=== PATIENT | male | born 1990 | race Caucasian/White ===

== ENCOUNTER 2016-08-20 17:42 | Inpatient (IN) | payer MEDICAID ==
[~2016-08-20] VITALS: Ht 172.7 cm; Wt 67.9 kg
[~2016-08-20 17:42] MED LIST: KETAMINE HCL 500 MG/10 ML VIAL ONE; MIDAZOLAM HCL 5 MG/5 ML VIAL ONE
[2016-08-20] MEDS ORDERED: ALU/MAG/SIM 30 ML UDC PO PRN (17:45)
[2016-08-20] MEDS ORDERED: PHARMACY TO DOSE VANCOMYCIN IV SCH (17:45)
[2016-08-20] MEDS ORDERED: SODIUM CHLORIDE 0.9% 1,000 ML IV SCH (17:45)
[2016-08-20] MEDS ORDERED: PHARMACY TO DOSE CEFEPIME IV SCH (17:45)
[2016-08-20] MEDS ORDERED: SALINE FLUSH 10 ML FLUSH PRN (17:45)
[2016-08-20] MEDS: ENOXAPARIN 40 MG/0.4 ML SYR SUBQ SCH (17:45)
[2016-08-20] MEDS ORDERED: DUONEB INH SCH (19:00)
[2016-08-20 21:29] VITALS: BP_SYST 88; RESP 18; TEMP 99.8
[2016-08-20] MEDS ORDERED: NEB-ALBUTEROL 2.5 MG/3 ML INH PRN (22:05)
[2016-08-20] MEDS ORDERED: PHARMACY TO DOSE ZOSYN IV SCH (22:05)
[2016-08-20] MEDS ORDERED: **NOTE TO NURSE XX SCH (22:17)
[2016-08-20] MEDS: DIVALPROEX SOD 125 MG CAP PO SCH (22:25)
[2016-08-20] MEDS: FAMOTIDINE 20 MG TAB PO SCH (22:27)
[2016-08-20 22:34] VITALS: BMI 22.5
[2016-08-20 22:48] VITALS: Ht 172.7 cm; Wt 67.9 kg
[2016-08-20] MEDS ORDERED: VANCOMYCIN 1,250 MG in SODIUM CHLORIDE 0.9% 250 ML IV ONE (22:55)
[2016-08-21] VITALS (30 sets, daily range): BP systolic 87–124; RESP 16–50; TEMP 98.5–101.4
[2016-08-21] MEDS: ACETAMINOPHEN 325 MG TAB PO PRN ×2 (00:13→07:32)
[2016-08-21] MEDS ORDERED: DIPHENHYDRAMINE 25 MG/10 ML UDC PO PRN (01:55)
[2016-08-21] MEDS: PIPERACIL/TAZO 3.375GM/50ML 50 ML IV SCH ×4 (02:13→17:42)
[2016-08-21] MEDS: SALINE FLUSH 10 ML FLUSH SCH ×3 (02:13→20:57)
[2016-08-21] MEDS: SODIUM CHLORIDE 0.9% FLUSH BAG 500 ML IV SCH (06:17)
[2016-08-21] MEDS ORDERED: SODIUM CHLORIDE 0.9% 1,000 ML IV ONE ×3 (06:55→11:10)
[2016-08-21] MEDS ORDERED: SODIUM CHLORIDE 0.9% 1,000 ML IV SCH ×2 (08:45→08:55)
[2016-08-21] MEDS ORDERED: LORAZEPAM 2 MG/ML VIAL IV PRN (08:55)
[2016-08-21] MEDS: CITALOPRAM 10 MG/5 ML PO SCH ×3 (09:00→20:53)
[2016-08-21] MEDS: ENOXAPARIN 40 MG/0.4 ML SYR SUBQ SCH (09:00)
[2016-08-21] MEDS: FAMOTIDINE 20 MG TAB PO SCH ×2 (09:44→20:56)
[2016-08-21] MEDS: DIVALPROEX SOD 125 MG CAP PO SCH ×2 (09:44→20:56)
[2016-08-21] MEDS: VANCOMYCIN 1,000 MG in SODIUM CHLORIDE 0.9% 250 ML IV SCH ×2 (10:37→17:43)
[2016-08-21] MEDS ORDERED: KETAMINE INJ 50 MG/ML VIAL IV ONE (13:15)
[2016-08-21] MEDS ORDERED: MISSING DOSE XX ONE ×5 (15:15→20:10)
[2016-08-21] MEDS ORDERED: MORPHINE 4 MG/ML SYR ONE (16:17)
[2016-08-21] MEDS: DEXMEDETOMIDINE 200 MCG in SODIUM CHLORIDE 0.9% 48 ML IV SCH ×2 (16:43→21:07)
[2016-08-21] MEDS: NEB-DORNASE ALFA 5 MG, WATER, STERILE 25 ML in ADMIX SYRINGE 1 EACH I-PLEURAL SCH ×4 (17:00→17:17)
[2016-08-21] MEDS: ALTEPLASE RECOMBINANT 10 MG, SODIUM CHLORIDE 0.9% PF 20 ML in ADMIX SYRINGE 1 EACH I-PLEURAL SCH ×4 (17:00→17:17)
[2016-08-21] MEDS: LACT RINGERS 1,000 ML IV SCH (18:21)
[2016-08-21] MEDS: PANTOPRAZOLE 40 MG VIAL IV SCH (20:56)
[2016-08-22] VITALS (42 sets, daily range): BP systolic 74–145; RESP 14–45; TEMP 98.1–101
[2016-08-22] MEDS: VANCOMYCIN 1,000 MG in SODIUM CHLORIDE 0.9% 250 ML IV SCH (00:27)
[2016-08-22] MEDS: PIPERACIL/TAZO 3.375GM/50ML 50 ML IV SCH ×5 (00:27→23:11)
[2016-08-22] MEDS: LACT RINGERS 1,000 ML IV SCH ×3 (01:05→22:05)
[2016-08-22] MEDS: DEXMEDETOMIDINE 200 MCG in SODIUM CHLORIDE 0.9% 48 ML IV SCH ×5 (01:28→19:56)
[2016-08-22] MEDS: ACETAMINOPHEN 325 MG TAB PO PRN ×2 (01:29→17:59)
[2016-08-22] MEDS: SODIUM CHLORIDE 0.9% FLUSH BAG 500 ML IV SCH (05:25)
[2016-08-22] MEDS ORDERED: VANCOMYCIN 1,500 MG in SODIUM CHLORIDE 0.9% 250 ML IV SCH (08:40)
[2016-08-22] MEDS: SALINE FLUSH 10 ML FLUSH SCH ×2 (09:05→20:00)
[2016-08-22] MEDS: ALTEPLASE RECOMBINANT 10 MG, SODIUM CHLORIDE 0.9% PF 20 ML in ADMIX SYRINGE 1 EACH I-PLEURAL SCH ×4 (09:16→17:11)
[2016-08-22] MEDS: NEB-DORNASE ALFA 5 MG, WATER, STERILE 25 ML in ADMIX SYRINGE 1 EACH I-PLEURAL SCH ×4 (09:17→17:11)
[2016-08-22] MEDS: PANTOPRAZOLE 40 MG VIAL IV SCH ×2 (09:18→21:48)
[2016-08-22] MEDS: DIVALPROEX SOD 125 MG CAP PO SCH ×2 (09:18→21:49)
[2016-08-22] MEDS: FAMOTIDINE 20 MG TAB PO SCH (09:19)
[2016-08-22] MEDS: ENOXAPARIN 40 MG/0.4 ML SYR SUBQ SCH (09:21)
[2016-08-22] MEDS ORDERED: MISSING DOSE XX ONE ×4 (09:35→21:45)
[2016-08-22] MEDS: VANCOMYCIN 1,250 MG in SODIUM CHLORIDE 0.9% 250 ML IV SCH ×3 (09:35→23:09)
[2016-08-22] MEDS ORDERED: POLYETHYLENE GLYCOL 17 GM PACKET PO PRN (11:05)
[2016-08-22] MEDS: CITALOPRAM 10 MG/5 ML PO SCH (21:48)
[2016-08-23] VITALS (36 sets, daily range): BP systolic 32–119; RESP 21–45; TEMP 96.7–98.4
[2016-08-23] MEDS: DEXMEDETOMIDINE 200 MCG in SODIUM CHLORIDE 0.9% 48 ML IV SCH ×5 (00:48→19:32)
[2016-08-23] MEDS ORDERED: MISSING DOSE XX ONE ×5 (04:10→19:35)
[2016-08-23] MEDS: LACT RINGERS 1,000 ML IV SCH (05:23)
[2016-08-23] MEDS: PIPERACIL/TAZO 3.375GM/50ML 50 ML IV SCH ×3 (05:37→18:58)
[2016-08-23] MEDS: SODIUM CHLORIDE 0.9% FLUSH BAG 500 ML IV SCH (05:37)
[2016-08-23] MEDS: VANCOMYCIN 1,250 MG in SODIUM CHLORIDE 0.9% 250 ML IV SCH ×2 (05:38→15:29)
[2016-08-23] MEDS ORDERED: LACT RINGERS 1,000 ML IV SCH (06:05)
[2016-08-23] MEDS: SALINE FLUSH 10 ML FLUSH SCH ×2 (09:36→22:05)
[2016-08-23] MEDS: ALTEPLASE RECOMBINANT 10 MG, SODIUM CHLORIDE 0.9% PF 20 ML in ADMIX SYRINGE 1 EACH I-PLEURAL SCH ×4 (09:37→17:38)
[2016-08-23] MEDS: NEB-DORNASE ALFA 5 MG, WATER, STERILE 25 ML in ADMIX SYRINGE 1 EACH I-PLEURAL SCH ×4 (09:38→17:38)
[2016-08-23] MEDS: DIVALPROEX SOD 125 MG CAP PO SCH ×2 (09:38→22:05)
[2016-08-23] MEDS: ENOXAPARIN 40 MG/0.4 ML SYR SUBQ SCH (09:39)
[2016-08-23] MEDS: POLYETHYLENE GLYCOL 17 GM PACKET PO SCH (09:40)
[2016-08-23] MEDS: DOCUSATE SOD 100 MG CAP PO SCH ×2 (12:21→22:05)
[2016-08-23] MEDS: PANTOPRAZOLE 40 MG TAB PO SCH (17:38)
[2016-08-23] MEDS: ACETAMINOPHEN 325 MG TAB PO PRN (17:45)
[2016-08-23] MEDS: MORPHINE 4 MG/ML SYR IV PRN ×2 (18:10→22:11)
[2016-08-23] MEDS: VANCOMYCIN 1,500 MG in SODIUM CHLORIDE 0.9% 250 ML IV SCH (22:06)
[2016-08-23] MEDS: CITALOPRAM 10 MG/5 ML PO SCH (22:07)
[2016-08-24] VITALS (39 sets, daily range): BP systolic 90–124; RESP 21–40; TEMP 97.2–98.7
[2016-08-24] MEDS: PIPERACIL/TAZO 3.375GM/50ML 50 ML IV SCH ×2 (00:09→06:06)
[2016-08-24] MEDS: DEXMEDETOMIDINE 200 MCG in SODIUM CHLORIDE 0.9% 48 ML IV SCH ×5 (00:13→19:28)
[2016-08-24] MEDS ORDERED: MISSING DOSE XX ONE ×5 (02:55→22:50)
[2016-08-24] MEDS: SODIUM CHLORIDE 0.9% FLUSH BAG 500 ML IV SCH (06:05)
[2016-08-24] MEDS: PANTOPRAZOLE 40 MG TAB PO SCH ×3 (06:06→18:04)
[2016-08-24] MEDS: VANCOMYCIN 1,500 MG in SODIUM CHLORIDE 0.9% 250 ML IV SCH ×3 (06:06→22:43)
[2016-08-24] MEDS: PANTOPRAZOLE 40 MG VIAL IV SCH (07:26)
[2016-08-24] MEDS ORDERED: ALTEPLASE RECOMBINANT 10 MG, SODIUM CHLORIDE 0.9% PF 20 ML in ADMIX SYRINGE 1 EACH I-PLEURAL ONE ×2 (08:35)
[2016-08-24] MEDS: DIVALPROEX SOD 125 MG CAP PO SCH ×2 (08:58→21:04)
[2016-08-24] MEDS: SALINE FLUSH 10 ML FLUSH SCH ×2 (08:58→20:00)
[2016-08-24] MEDS: POLYETHYLENE GLYCOL 17 GM PACKET PO SCH (09:00)
[2016-08-24] MEDS ORDERED: NEB-DORNASE ALFA 5 MG, WATER, STERILE 25 ML in ADMIX SYRINGE 1 EACH I-PLEURAL ONE ×2 (09:10)
[2016-08-24] MEDS: DOCUSATE SOD 100 MG CAP PO SCH ×2 (09:20→21:00)
[2016-08-24] MEDS: ENOXAPARIN 40 MG/0.4 ML SYR SUBQ SCH (09:21)
[2016-08-24] MEDS ORDERED: LORAZEPAM 2 MG/ML VIAL IV ONE (16:45)
[2016-08-24] MEDS: CITALOPRAM 10 MG/5 ML PO SCH (21:03)
[2016-08-25] VITALS (24 sets, daily range): BP systolic 92–128; RESP 17–38; TEMP 99.1–99.7
[2016-08-25] MEDS ORDERED: MISSING DOSE XX ONE ×6 (03:55→20:30)
[2016-08-25] MEDS: DEXMEDETOMIDINE 200 MCG in SODIUM CHLORIDE 0.9% 48 ML IV SCH ×5 (04:05→20:53)
[2016-08-25] MEDS: SODIUM CHLORIDE 0.9% FLUSH BAG 500 ML IV SCH (06:00)
[2016-08-25] MEDS ORDERED: PANTOPRAZOLE 40 MG TAB PO SCH (07:00)
[2016-08-25] MEDS: SALINE FLUSH 10 ML FLUSH SCH ×2 (08:46→20:00)
[2016-08-25] MEDS: VANCOMYCIN 1,500 MG in SODIUM CHLORIDE 0.9% 250 ML IV SCH (08:46)
[2016-08-25] MEDS: PANTOPRAZOLE 40 MG TAB PO SCH ×2 (08:46→17:49)
[2016-08-25] MEDS: DIVALPROEX SOD 125 MG CAP PO SCH ×2 (08:47→20:03)
[2016-08-25] MEDS: DOCUSATE SOD 100 MG CAP PO SCH ×2 (08:47→20:03)
[2016-08-25] MEDS: POLYETHYLENE GLYCOL 17 GM PACKET PO SCH (08:47)
[2016-08-25] MEDS: ENOXAPARIN 40 MG/0.4 ML SYR SUBQ SCH (08:48)
[2016-08-25] MEDS: [UNRECOGNIZED DRUG - OTHER] PO SCH ×2 (14:35→20:03)
[2016-08-25] MEDS: SULBACTAM IV SCH (17:50)
[2016-08-25] MEDS: SODIUM CHLORIDE 0.9% IV SCH (17:50)
[2016-08-25] MEDS: CITALOPRAM 10 MG/5 ML PO SCH (20:04)
[2016-08-26] VITALS (21 sets, daily range): BP systolic 92–150; RESP 17–29; TEMP 97.6–100.4
[2016-08-26] MEDS: SODIUM CHLORIDE 0.9% IV SCH ×4 (00:28→17:17)
[2016-08-26] MEDS: SULBACTAM IV SCH ×4 (00:28→17:17)
[2016-08-26] MEDS ORDERED: MISSING DOSE XX ONE ×4 (00:40→21:05)
[2016-08-26] MEDS: DEXMEDETOMIDINE 200 MCG in SODIUM CHLORIDE 0.9% 48 ML IV SCH ×2 (00:47→04:12)
[2016-08-26] MEDS: ACETAMINOPHEN 325 MG TAB PO PRN (03:24)
[2016-08-26] MEDS: SODIUM CHLORIDE 0.9% FLUSH BAG 500 ML IV SCH (04:14)
[2016-08-26] MEDS: PANTOPRAZOLE 40 MG TAB PO SCH ×2 (06:12→16:56)
[2016-08-26] MEDS ORDERED: LORAZEPAM 0.5 MG TAB PO PRN (08:45)
[2016-08-26] MEDS: DIVALPROEX SOD 125 MG CAP PO SCH ×2 (08:52→20:53)
[2016-08-26] MEDS: SALINE FLUSH 10 ML FLUSH SCH (08:53)
[2016-08-26] MEDS: [UNRECOGNIZED DRUG - OTHER] PO SCH ×2 (08:53→20:55)
[2016-08-26] MEDS: DOCUSATE SOD 100 MG CAP PO SCH ×2 (08:53→20:53)
[2016-08-26] MEDS: POLYETHYLENE GLYCOL 17 GM PACKET PO SCH (08:53)
[2016-08-26] MEDS: ENOXAPARIN 40 MG/0.4 ML SYR SUBQ SCH (08:54)
[2016-08-26] MEDS: CITALOPRAM 10 MG/5 ML PO SCH (20:52)
[2016-08-26] MEDS ORDERED: ACETAMINOPHEN 325 MG TAB ONE (21:16)
[2016-08-27 01:00] VITALS: BP_SYST 106; RESP 18; TEMP 98
[2016-08-27] MEDS: SODIUM CHLORIDE 0.9% IV SCH ×3 (01:30→12:00)
[2016-08-27] MEDS: SULBACTAM IV SCH ×3 (01:30→12:00)
[2016-08-27 05:17] VITALS: BP_SYST 114; RESP 18; TEMP 97.7
[2016-08-27] MEDS ORDERED: MISSING DOSE XX ONE ×3 (06:20→20:45)
[2016-08-27 07:39] VITALS: BP_SYST 105; RESP 16; TEMP 97.3
[2016-08-27] MEDS: PANTOPRAZOLE 40 MG TAB PO SCH ×2 (07:47→15:47)
[2016-08-27] MEDS: SALINE FLUSH 10 ML FLUSH SCH ×3 (07:48→20:00)
[2016-08-27] MEDS: SODIUM CHLORIDE 0.9% FLUSH BAG 500 ML IV SCH (07:48)
[2016-08-27] MEDS: DOCUSATE SOD 100 MG CAP PO SCH ×2 (09:23→20:48)
[2016-08-27] MEDS: DIVALPROEX SOD 125 MG CAP PO SCH ×2 (09:23→20:47)
[2016-08-27] MEDS: POLYETHYLENE GLYCOL 17 GM PACKET PO SCH (09:23)
[2016-08-27] MEDS: ENOXAPARIN 40 MG/0.4 ML SYR SUBQ SCH (09:24)
[2016-08-27] MEDS: [UNRECOGNIZED DRUG - OTHER] PO SCH ×2 (09:24→20:47)
[2016-08-27 11:07] VITALS: BP_SYST 128; RESP 16; TEMP 97.2
[2016-08-27] MEDS: AMOXICILLIN/CLAV 875 MG TAB PO SCH ×2 (15:47→20:47)
[2016-08-27 20:27] VITALS: BP_SYST 109; RESP 18; TEMP 99.1
[2016-08-27] MEDS: CITALOPRAM 10 MG/5 ML PO SCH (20:48)
[2016-08-28 00:36] VITALS: BP_SYST 138; RESP 18; TEMP 97.8
[2016-08-28 03:44] VITALS: BP_SYST 132; RESP 18; TEMP 97.8
[2016-08-28] MEDS: SODIUM CHLORIDE 0.9% FLUSH BAG 500 ML IV SCH (06:00)
[2016-08-28] MEDS: PANTOPRAZOLE 40 MG TAB PO SCH (06:30)
[2016-08-28 07:45] VITALS: BP_SYST 112; RESP 18; TEMP 98.6
[2016-08-28] MEDS: SALINE FLUSH 10 ML FLUSH SCH (08:00)
[2016-08-28] MEDS: ENOXAPARIN 40 MG/0.4 ML SYR SUBQ SCH ×2 (09:00→09:28)
[2016-08-28] MEDS: DOCUSATE SOD 100 MG CAP PO SCH (09:00)
[2016-08-28] MEDS: AMOXICILLIN/CLAV 875 MG TAB PO SCH (09:25)
[2016-08-28] MEDS: DIVALPROEX SOD 125 MG CAP PO SCH (09:26)
[2016-08-28] MEDS: [UNRECOGNIZED DRUG - OTHER] PO SCH (09:26)
[2016-08-28] MEDS: POLYETHYLENE GLYCOL 17 GM PACKET PO SCH (09:28)
[2016-08-28 11:15] VITALS: BP_SYST 118; RESP 18; TEMP 97.4
[2016-08-28 12:56] VITALS: BP_SYST 118; RESP 18; TEMP 97.4
== END 2016-08-28 13:50 | disposition home or self-care (01) | DRG 871 ==
LOC: ENRESERVTM → ENRESERVDT → 4NT 20:58 → ENPENDDIS 20:58 → ICU 08-21 14:38 → 4NT 08-27 01:05
PROVIDERS: ADMIT Internal Medicine; ATTEND Internal Medicine
PROC: 0W9B30Z Drainage of Left Pleural Cavity with Drainage Device, Percutaneous Approach (ICD-10-PCS; principal; 2016-08-21)
PROC: 3E0L3GC Introduction of Other Therapeutic Substance into Pleural Cavity, Percutaneous Approach (ICD-10-PCS; 2016-08-21)
DX: A41.9 Sepsis, unspecified organism (principal); J96.01 Acute respiratory failure with hypoxia; J86.9 Pyothorax without fistula; R65.21 Severe sepsis with septic shock; E87.2 Acidosis; J18.9 Pneumonia, unspecified organism; E46 Unspecified protein-calorie malnutrition; F84.0 Autistic disorder; E87.1 Hypo-osmolality and hyponatremia; B95.4 Other streptococcus as the cause of diseases classified elsewhere; K21.9 Gastro-esophageal reflux disease without esophagitis; K59.00 Constipation, unspecified; R32 Unspecified urinary incontinence; Z78.1 Physical restraint status; Z68.22 Body mass index [BMI] 22.0-22.9, adult; D64.9 Anemia, unspecified
CPT/HCPCS: 71010; 71020; 71250; 80048; 80053; 80202; 82150; 82945; 83605; 83615; 83735; 83880; 83986; 84100; 84155; 85025; 85610; 87040; 87071; 87077; 87102; 87116; 87186; 87205; 87206; 87278; 87299; 88108; 89051; 94799; 99223; 99232; 99233; 99239; 99291